=== PATIENT | male | born 1970 | race Hispanic/Latino ===

== ENCOUNTER 2018-06-06 23:27 | Emergency (ER) | payer OTHER, SELFPAY ==
[2018-06-07 00:06] VITALS: BP 118/76; PULSE 35; RESP 18; TEMP 36.3; O2SAT 97; BMI 23.6
--- NOTE | 2018-06-07 01:29 | PC.NURSE ---
Updated [facility] from [facility].
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
[2018-06-07] MEDS: ERYTHROMYCIN OPHTH 1 GM OINT 1 APPLIC EYE-BOTH (04:16)
[2018-06-07] MEDS: PROPARACAINE 0.5% OPHTH SOL 1 DROPS EYE-BOTH (04:43)
[2018-06-07 04:44] VITALS: BP 124/89; PULSE 69; RESP 18; TEMP 36.4; O2SAT 100
== END 2018-06-07 04:47 | disposition home or self-care (01) ==
PROVIDERS: Emergency Provider Emergency Medicine
DX: T26.90XA Corrosion of unspecified eye and adnexa, part unspecified, initial encounter (principal); Y99.0 Civilian activity done for income or pay
CPT/HCPCS: 99283